=== PATIENT | female | born 1985 | race Caucasian/White ===

== ENCOUNTER 2020-11-06 10:10 | Day surgery (SDC) | payer OTHER, MEDICAID, SELFPAY ==
--- NOTE | 2020-11-06 | PATH_ITS ---
[facility] Accession Number: [id number] . 01 Material submitted: . endometrium - ENDOMETRIAL CURETTINGS AND POLYP . 02 Diagnosis: Endometrium and Endometrial Polyp, Curettage: Secretory endometrium with no diagnostic abnormality. Fragment of endometrium with features consistent with endometrial polyp and extensive squamous metaplasia. Negative for atypical hyperplasia or malignancy. V 11/10/2020 1351 Local . 02 Comment: As part of routine supplier quality engineer, Dr. Higgins has reviewed this case and agrees that there is no evidence of neoplasm. . 02 Electronically signed: . Cam Muse MD, PhD, Pathologist NPI- [id number] . 01 Gross description: . Received in formalin, labeled endometrial curettings and polyp, are multiple fragments of crystal, soft tissue and hemorrhagic material measuring 0.7 x 0.5 x 0.2 cm in aggregate. One larger piece of crystal, soft tissue is observed measuring 0.8 x 0.5 x 0.3 cm. The fragments of tissue and hemorrhagic material are entirely submitted in aggregate in cassette A1. The larger piece of tissue is inked, serially sectioned into four slices, and entirely submitted in cassette A2. ([id number]) /R 11/07/2020 1606 Local . 02 Pathologist provided ICD-10: N84.0 . 02 CPT . 289204 Performed at: 01 [facility] [address] [facility], [place], [place] [id number] MD Geraldo Pathak MD Phone: [phone] Performed at: 02 [facility] [address] [place], [place] [id number] MD Leeanna Higgins MD Phone: [phone]
[2020-11-06 10:33] VITALS: BP 129/94; PULSE 90; RESP 16; TEMP 36.6; O2SAT 99; BMI 43.9
[2020-11-06] MEDS: LACTATED RINGERS 1,000 ML 100 ML IV (10:40)
[2020-11-06 10:48] LABS: COVID19 -Nasal RAPID Negative (Negative)
--- NOTE | 2020-11-06 11:12 | PM.PREOP ---
Pre-operative Note COVID-19 COVID-19 status: Negative Result date/Date tested (Pos, Neg/Pending): 11/06/20 Interval Note History & Physical reviewed/Exam performed by Physician: Yes Changes to H&P: No
[2020-11-06] MEDS: ACETAMINOPHEN 325 MG TABLET 975 MG PO (11:39)
[2020-11-06] MEDS: SCOPOLAMINE 1 PATCH TOP (11:43)
--- NOTE | 2020-11-06 11:44 | SUR.PREOP ---
Scope patch would not scan - F5 done.
--- NOTE | 2020-11-06 12:10 | SUR.OPER ---
Lithotomy on padded OR bed, head on pillow, arms secured on padded arm boards at <90 degrees abduction. Legs secured in padded yellow fins stirrups.
[2020-11-06 12:22] VITALS: BP 139/91; PULSE 83; RESP 15; TEMP 37; O2SAT 96
[2020-11-06 12:27] VITALS: BP 134/94; PULSE 81; RESP 17; O2SAT 95
--- NOTE | 2020-11-06 12:31 | P.OP_ITS ---
Operative Date/Time/Diagnoses Date of procedure: 11/06/20 Time of procedure: 12:31 Pre-op diagnosis: endometrial polyp Post-op diagnosis: same Procedure & Clinicians Procedure: Operative hysteroscopy Same procedure as scheduled: Yes Indications: endometrial polyp, abnormal uterine bleeding Surgeon: Mone Johnson Click Yes if Unassisted: Yes Anesthesia Type: Sedation Operative Notes Findings: Normal vulva, vagina, cervix. Endometrium with approximately 5 mm polyp in the lower uterine segment at 7:00 a.m., with prominent vasculature. Otherwise normal premenopausal endometrium. Closure Type: primary Specimen(s): other (Endometrial polyp, endometrial curettings) Estimated Blood Loss (mL): 5 Procedure in detail: After informed consent was obtained, the patient was taken to the operating. She had voided on route. She was placed in the dorsal lithotomy position and prepped and draped in the usual sterile fashion. A speculum was inserted in the vagina and the cervix easily visualized and grasped on the anterior lip with a single-tooth tenaculum. The patient pretreated with Cytotec, and Hegar dilators were used to serially dilate the cervix to 8 mm with gentle pressure. The operative hysteroscope was inserted through the dilated cervix with sorbitol running for hydrodilation, and the endometrial cavity easily visualized. The above findings were noted. A polyp forceps was used to remove part of the polyp, and the cautery loop on the hysteroscope used to c auterize the base. Repeat survey with the hysteroscope revealed no abnormalities, the hysteroscope was removed, and a gentle curettage was performed. The tenaculum was removed from the cervix with spontaneous hemostasis noted. The speculum was removed from the vagina. The patient tolerated procedure well. EBL: Minimal Fluid deficit: 77 ml, sorbitol IV fluids: 600 cc of lactated Ringer's Complications: none Post-operative Condition: stable Disposition: PACU Plan for aftercare: Routine postoperative care
[2020-11-06 12:34] VITALS: BP 128/66; PULSE 72; RESP 16; O2SAT 98
[2020-11-06 12:42] VITALS: BP 128/66; PULSE 68; RESP 14; O2SAT 98
[2020-11-06] MEDS: OXYCODONE/ACETAMINOPHEN 5/325 TABLET 1 TAB PO (12:45)
== END 2020-11-06 13:00 | disposition home or self-care (01) ==
PROVIDERS: Family Provider Nurse Practitioner; PCP Family Medicine; Referring Provider Family Medicine; Visit Provider Obstetrics & Gynecology
PROC: 0UDB8ZZ Extraction of Endometrium, Via Natural or Artificial Opening Endoscopic (ICD-10-PCS; CPT 58558; principal; 2020-11-06 11:15)
DX: N84.0 Polyp of corpus uteri (principal); K21.9 Gastro-esophageal reflux disease without esophagitis; E66.01 Morbid (severe) obesity due to excess calories; Z68.41 Body mass index [BMI] 40.0-44.9, adult; F17.210 Nicotine dependence, cigarettes, uncomplicated; Z20.822 Contact with and (suspected) exposure to COVID-19
CPT/HCPCS: 58558; 81025; 87635; J1100; J2250; J2405; J2704